=== PATIENT | female | born 1940 | race Caucasian/White ===

== ENCOUNTER 2016-09-19 08:09 | Day surgery (SDC) | payer OTHER ==
[2016-09-16 14:43] VITALS: BMI 36.8
[2016-09-19] MEDS ORDERED: ROCURONIUM BROMIDE 50 MG/5 ML VIAL ONE (09:40)
[2016-09-19] MEDS ORDERED: MIDAZOLAM HCL 2 MG/2 ML SINGLE DOSE VIAL ONE (09:40)
[2016-09-19] MEDS ORDERED: PROPOFOL 20 ML ONE ×2 (09:40)
[2016-09-19] MEDS ORDERED: ceFAZolin SODIUM 1 GM VIAL IVPB ONE (10:05)
[2016-09-19] MEDS ORDERED: GLYCOPYRROLATE 0.2 MG/1 ML VIAL ONE (10:21)
[2016-09-19] MEDS ORDERED: NEOSTIGMINE METHYLSULFATE 0.5 MG/ML - 10 ML MDV ONE (10:21)
[2016-09-19] MEDS ORDERED: DEXAMETHASONE SOD PHOSPHATE 4 MG/1 ML VIAL ONE (10:22)
[2016-09-19] MEDS ORDERED: BUPIVACAINE HCL/PF 0.5% (5MG/ML) 10 ML VIAL IJ ONE (11:10)
--- NOTE | 2016-09-19 11:10 | HP ---
Satellite [facility] - Chief Complaint Chief Complaint: Umbilical/ventral bulge/hernia History of Present Illness: 76 female with umbilical/ventral hernia causing pain and discomfort palpated in the office History Source: Patient, Family Member - Past Medical History Allergies/Adverse Reactions: Allergies Allergy/AdvReac Type Severity Reaction Status Date / Time No Known Allergies Allergy Verified 09/19/16 08:35 Cardiovascular: Yes: HTN, Hyperlipdemia - Current Medications Current Medications: Home Medications Medication Instructions Recorded Aspirin [Ecotrin] 81 mg PO DAILY 09/16/16 Atorvastatin Ca [Lipitor] 20 mg PO DAILY 09/16/16 Losartan Potassium 50 mg PO DAILY 09/16/16 Docusate Sodium [Colace -] 100 mg PO TID #90 capsule 09/19/16 Oxycodone HCl/Acetaminophen 1 - 2 tab PO Q6H #28 tab MDD 4 09/19/16 [Percocet 5-325 mg Tablet] Satellite Physical Exam - Physical Examination Vital Signs: Vital Signs Period Temp Pulse Resp BP Sys/Gracia Pulse Ox Last 24 Hr 97.8 F 90 18 156/75 95 General Appearance: Well Nourished Lung: Clear to auscultation Heart: Regular rate & rhythm Abdomen: Soft, No tenderness, Other (+Ventral hernia) Neurological: Alert, Oriented Satellite Impression/Plan - Impression/Plan Impression: Umbilical/ventral hernia Operative Procedure: Laparoscopic possible open umbilical/ventral hernia repair with mesh Date to be Performed: 09/19/16
--- NOTE | 2016-09-19 11:11 | OP ---
Operative Note - Note: Operative Date: 09/19/16 Pre-Operative Diagnosis: Umbilical/ventral hernia Operation: Laparoscopic incarcerated ventral hernia repair with mesh Post-Operative Diagnosis: Other (Incarcerated ventral hernia) Surgeon: Darius Blanco Marketing And Communications Officer: Tanvi Cade Anesthesia: General Specimens Removed: None Estimated Blood Loss (mls): 5 Operative Report Dictated: Yes
[2016-09-19] MEDS ORDERED: ACETAMINOPHEN 325 MG TABLET (FP) PO PRN ×2 (11:17→12:12)
[2016-09-19] MEDS ORDERED: OXYCODONE/APAP 5/325MG COMBO TABLET PO PRN (11:18)
[2016-09-19] MEDS ORDERED: ONDANSETRON 4 MG/2 ML VIAL IVPB PRN (11:19)
[2016-09-19] MEDS ORDERED: oxyCODONE HCL 5 MG TABLET PO PRN ×2 (11:25→12:12)
[2016-09-19] MEDS ORDERED: D5-1/2NS+20 MEQ KCL - 1,000 ML IV SCH (11:30)
[2016-09-19] MEDS ORDERED: LACTATED RINGERS SOLUTION 1,000 ML IV SCH (11:30)
[2016-09-19 13:19] VITALS: TEMP 98
[2016-09-19 16:00] VITALS: BP 136/86; PULSE 78
--- NOTE | 2016-09-20 12:07 | OP ---
DATE OF OPERATION: 09/19/2016 SURGEON: Gerald Blanco MD FINANCE VICE PRESIDENT: ALIDA Zarate PREOPERATIVE DIAGNOSIS: Umbilical/ventral hernia. POSTOPERATIVE DIAGNOSIS: Incarcerated ventral hernia. PROCEDURE: Laparoscopic incarcerated ventral hernia repair with mesh. ESTIMATED BLOOD LOSS: 5 mL. DRAINS: None. ANESTHESIA: GET. REASON FOR PROCEDURE: This is a 76-year-old female who presented to the office for pain and discomfort near her umbilicus and just superior to it. A hernia was palpated at the time. The different options were discussed and the patient decided to proceed with a laparoscopic possible open repair of the umbilical/ventral hernia repair with mesh. The risks and benefits of the procedure were explained. These included bleeding, infection, recurrent hernia, PR, DVT, PE, injury to surrounding abdominal structures including bowel injury. The patient understood, her daughter understood as well, and informed consent was obtained. DESCRIPTION OF PROCEDURE: The patient was placed supine on the operating room table. She underwent general endotracheal intubation by Anesthesia. The abdomen was prepped and draped in the usual sterile fashion. A time-out was performed. A 5-mm incision was made in the left upper quadrant. Entrance into the abdominal cavity was obtained using a 5-mm optical trocar laparoscopically. A pneumoperitoneum was established. Immediately, it was noted that there was omentum incarcerated within the supraumbilical ventral hernia. A 12-mm trocar was placed in the left lateral abdominal wall and a 5-mm trocar placed in the left lower quadrant. The patient was placed in a slight right lateral decubitus position. The omentum was grasped and freed from the abdominal wall and fascia and reduced. At this point, the fascial defect was noted. This was closed primarily laparoscopically using a 0 Vicryl suture. A Ventralight mesh ST mesh with Echo Positioning System was then chosen, soaked in saline, and placed within the abdominal cavity. The center of the hernia sac was noted and a stab wound made at the center of the defect with an 11-blade scalpel. A suture passer was then placed and inserted to grasp the tubing connected to the mesh. This was exteriorized. The balloon infrastructure of the mesh was then insufflated, keeping the mesh centrally over the hernia defect. The mesh was then secured in place using multiple tackers with the ReliaTack. The balloon infrastructure was then removed from the abdominal cavity. The mesh was noted to be in good position and fully secured. Hemostasis was noted, as well. At this point, the 12-mm trocar was removed and the fascia closed using a 0 Vicryl suture laparoscopically with the suture passer. Pneumoperitoneum was then desufflated. All trocars were removed. Marcaine was injected into all wounds and incisions. The skin was closed using 4-0 Biosyn. Sterile dressings were applied. The patient tolerated the procedure well. An abdominal binder was placed. The patient was transferred to the recovery room in stable condition. GERALD BLANCO M.D. [id number]
--- NOTE | 2016-09-23 09:09 | SURG ---
Surgery Homicide Squad Captain Note Homicide Squad Captain: Tanvi Cade PA-C Date of Service: 09/19/16 Diagnosis: Umbilical/ventral hernia Procedure: Laparoscopic incarcerated ventral hernia repair with mesh I was present for the entirety of the operative procedure. For further detail, please refer to operative report. Visit type - Case Type Case Type: Scheduled Admission - Emergency Emergency Visit: No - New patient This patient is new to me today: Yes Date on this admission: 09/23/16 - Critical Care Critical Care patient: No
== END 2016-09-19 15:10 | disposition home or self-care (01) ==
LOC: JASU-SURG 08:09
PROVIDERS: ATTEND Surgery
PROC: 0WUF4JZ Supplement Abdominal Wall with Synthetic Substitute, Percutaneous Endoscopic Approach (ICD-10-PCS; principal; 2016-09-19 09:30)
DX: K43.6 Other and unspecified ventral hernia with obstruction, without gangrene (principal)
CPT/HCPCS: 94760

== ENCOUNTER 2019-07-27 14:54 | Emergency (ER) | payer OTHER ==
[2019-07-27 15:07] VITALS: BP 144/91; PULSE 90; TEMP 97.9; BMI 36.0
[2019-07-27] MEDS ORDERED: METHOCARBAMOL 500 MG TABLET PO ONE (15:37)
[2019-07-27] MEDS ORDERED: IBUPROFEN 600 MG TABLET (FP) PO ONE ×2 (15:37→15:56)
--- NOTE | 2019-07-27 15:37 | PDOC ---
History of Present Illness - General Chief Complaint: Pain Stated Complaint: BOTH ARM PAIN RADIATING TO NECK Time Seen by Provider: 07/27/19 14:58 - History of Present Illness Initial Comments: 07/27/19 16:26 79yo female with hx of htn and hld presents for eval of pain in b/l UE x months. Pt states she has followed with Dr. Webster who recommended aleve 2 tabs daily for the pain. Pt states she has been taking the aleve without any improvement in the pain. States the pain is sharp and feels like needles are sticking her. States her fingers feels tingling. Pt denies neck pain, but states the pain comes up her arms and up the lateral aspects of the neck. Denies trauma. Denies cp/sob. No manuel. No weakness. States pain with ROM especially when lifting her arms in flexion and abduction. Pt denies abd pain. No n/v/d. No dysuria. No leg complaints. No bowel or bladder complaints. Past History - Past Medical History Allergies/Adverse Reactions: Allergies Allergy/AdvReac Type Severity Reaction Status Date / Time No Known Allergies Allergy Verified 07/27/19 14:55 Home Medications: Ambulatory Orders Aspirin [Ecotrin] 81 mg PO DAILY 09/16/16 Atorvastatin Ca [Lipitor] 20 mg PO DAILY 09/16/16 Losartan Potassium 50 mg PO DAILY 09/16/16 Methocarbamol [Robaxin -] 500 mg PO BID PRN #6 tablet 07/27/19 Naproxen [Naprosyn] 500 mg PO BID PRN #10 tablet 07/27/19 Anemia: No Asthma: No Cancer: No Cardiac Disorders: No CVA: No COPD: No Dementia: No Diabetes: No GI Disorders: No Disorders: No HTN: Yes Hypercholesterolemia: Yes Liver Disease: No Seizures: No Thyroid Disease: No - Surgical History Abdominal Surgery: No Appendectomy: No Cardiac Surgery: No Cholecystectomy: No Lung Surgery: No Neurologic Surgery: No Orthopedic Surgery: No - Psycho Social/Smoking Cessation Hx Smoking History: Never smoked Have you smoked in the past 12 months: No Information on smoking cessation initiated: No Hx Alcohol Use: No Drug/Substance Use Hx: No Substance Use Type: None Hx Substance Use Treatment: No Review of Systems - Review of Systems Able to Perform ROS?: Yes Is the patient limited [place] proficient: No Constitutional: No: Chills, Fever HEENTM: No: Eye Pain, Nose Congestion, Throat Pain Respiratory: No: Cough, Shortness of Breath Cardiac (ROS): No: Chest Pain, Edema, Palpitations, Chest Tightness ABD/GI: No: Diarrhea, Nausea, Vomiting, Abdominal cramping : No: Burning, Dysuria, Incontinence Musculoskeletal: Yes: Muscle Pain, Neck Pain, Other (b/l UE pain). No: Back Pain Integumentary: No: Bruising Neurological: Yes: Tingling. No: Headache, Numbness, Paresthesia, Weakness, Ataxia All Other Systems: Reviewed and Negative *Physical Exam - Vital Signs Last Vital Signs Temp Pulse Resp BP Pulse Ox 97.9 F 90 20 144/91 95 07/27/19 14:55 07/27/19 14:55 07/27/19 14:55 07/27/19 14:55 07/27/19 14:55 - Physical Exam General Appearance: Yes: Nourished, Appropriately Dressed. No: Apparent Distress HEENT: positive: EOMI, Normal Voice Neck: positive: Supple, Tender lateral (palpation of the paraspinal muscles reproduces the pain her arms, spasm of the trapezius muscles). negative: Decreased range of motion, Tender midline Respiratory/Chest: positive: Lungs Clear, Normal Breath Sounds. negative: Chest Tender, Respiratory Distress Cardiovascular: positive: Regular Rhythm, Regular Rate, S1, S2. negative: Edema Gastrointestinal/Abdominal: positive: Soft. negative: Guarding, Rebound, Tenderness Musculoskeletal: positive: Normal Inspection. negative: CVA Tenderness, Vertebral Tenderness Extremity: positive: Normal Capillary Refill, Normal Inspection, Normal Range of Motion (FROM but pain with end range of motion with flexion at the shoulders and abduction at the shoulders). negative: Swelling, Calf Tenderness Integumentary: positive: Normal Color, Dry, Warm Neurologic: positive: lead programmer II-XII NML intact, Fully Oriented, Alert, Normal Mood/ Affect, Normal Response, Motor Strength 5/5, Other (ambulated with a steady gait ) Medical Decision Making - Medical Decision Making 07/27/19 16:32 a/p: 79yo female with b/l UE pain -suspect cervical disc disease -will send for ct cervical spine -will give motrin, robaxin -will monitor and reassess -no acute neuro finding, but pain in arms consistent with neuropathic pain/ radiculopathy 07/27/19 17:04 ct cervical spine: no subluxations, no acute fx, +degenerative changes with disc and foraminal narrowing and osteophytes pt states feeling much better better rom without pain discussed ct findings discussed need for follow up with spine and neurology discussed follow up with Dr. webster answered all questions and discussed all reasons to return to the ER Discharge - Discharge Information Problems reviewed: Yes Clinical Impression/Diagnosis: Cervical radicular pain Condition: Stable Disposition: HOME - Admission No - Additional Discharge Information Prescriptions: Methocarbamol [Robaxin -] 500 mg PO BID PRN #6 tablet PRN Reason: Muscle Spasms Naproxen [Naprosyn] 500 mg PO BID PRN #10 tablet PRN Reason: Pain - Follow up/Referral Referrals: Justin Pope MD, [facility] [Staff Physician] - Pancho Lee MD [Staff Physician] - Brenda Coyle MD [Staff Physician] - Tod Miles MD [Staff Physician] - Steve Benson MD [Staff Physician] - - Patient Discharge Instructions Patient Printed Discharge Instructions: DI for Cervical Radiculopathy Additional Instructions: Please take all medications as prescribed. Please make an appointment to see the neurologist and the neurosurgeon in 2-3 days. Please make an appointment to see your PMD on monday to assist with follow up. Please return to the ER with any further concerns or complaints. - Post Discharge Activity
[2019-07-27] MEDS ORDERED: METHOCARBAMOL 500 MG TABLET ONE (15:56)
== END 2019-07-27 17:35 | disposition home or self-care (01) ==
LOC: FER 14:54
DX: M54.12 Radiculopathy, cervical region (principal)
CPT/HCPCS: 72125-TC; 99282-25